=== PATIENT | male | born 1985 | race American Indian/Alaskan Native ===

== ENCOUNTER 2017-07-10 17:46 | Emergency (ER) | payer MEDICAID, OTHER ==
[2017-07-10] MEDS ORDERED: Acetaminophen/HYDROcodone 325-10 MG Tab PO ONE (17:47)
[2017-07-10 18:08] VITALS: BP 148/101
[2017-07-10] MEDS ORDERED: Acetaminophen/HYDROcodone 325-10 MG Tab ONE (18:50)
--- NOTE | 2017-07-10 18:55 | EDM.PDOC ---
ED HPI GENERAL MEDICAL PROBLEM - General Chief Complaint: Back Pain or Injury Stated Complaint: ABD/SIDE PAINS, [id number] Time Seen by Provider: 07/10/17 18:50 Source of Information: Reports: Patient History Limitations: Reports: No Limitations - History of Present Illness INITIAL COMMENTS - FREE TEXT/NARRATIVE: fell onto left side last night Left Posterior Chest Pain Score (Numeric/FACES): 10 - Related Data Allergies Allergy/AdvReac Type Severity Reaction Status Date / Time Penicillins Allergy Edema Verified 07/10/14 06:48 Home Meds: Home Meds Ibuprofen [Advil] 800 mg PO ASDIRECTED PRN 12/03/13 [History] Omeprazole 40 mg PO DAILY PRN 12/03/13 [History] Albuterol [Proventil HFA] 07/10/17 [History] Past Medical History Respiratory History: Reports: Asthma Gastrointestinal History: Reports: GERD - Past Surgical History HEENT Surgical History: Reports: Adenoidectomy, Tonsillectomy Social & Family History - Tobacco Use Smoking Status *Q: Current Every Day Smoker Years of Tobacco use: 7 Packs/Tins Daily: 0.5 - Caffeine Use Caffeine Use: Reports: Coffee, Tea - Alcohol Use Days Per Week of Alcohol Use: 0 - Recreational Drug Use Recreational Drug Use: No - Living Situation & Occupation Living situation: Reports: , with Family Occupation: Employed ED ROS GENERAL - Review of Systems Review Of Systems: ROS reveals no pertinent complaints other than HPI. ED EXAM, UPPER BACK/NECK PAIN - Physical Exam Exam: See Below Exam Limited By: No Limitations General Appearance: Alert, WD/WN, Mild Distress, Other (rib pain) Ears Exam: Hearing Grossly Normal Throat/Mouth Exam: Normal Voice, No Airway Compromise Head Exam: Atraumatic Neck Exam: Non-Tender, Full Range of Motion Nexus Criteria: No: Posterior, Midline Cervical Tenderness, Evidence of Intoxication, Altered Level of Consciousness, Focal Neurological Deficit, Painful Distraction Injuries Cardiovascular/Respiratory: Regular Rate, Rhythm, No Respiratory Distress, Other (left rib tender @ lateral 10-11-12 region, minimal 1" size discolourarion without crepitus, satis A/M) GI/Abdominal: Soft, Non-Tender Neurologic: No Motor/Sensory Deficits, Alert, Normal Mood/Affect, Oriented x 3 Psychiatric: Tearful Skin Exam: Normal Color, Warm/Dry Lymphatic: No Adenopathy Course - Vital Signs Last Recorded V/S: Last Vital Signs Temp 36.8 C 07/10/17 18:07 Pulse 105 H 07/10/17 18:07 Resp 18 07/10/17 18:07 BP 148/101 H 07/10/17 18:07 Pulse Ox 98 07/10/17 18:07 - Orders/Labs/Meds Orders: Active Orders 24 hr Category Date Time Status Ribs 2V w Chest Lt [CR] Urgent Exams 07/10/17 18:18 Taken - Re-Assessments/Exams Free Text/Narrative Re-Assessment/Exam: 07/10/17 18:53 results discussed with pt. Departure - Departure Time of Disposition: 18:53 Disposition: Home, Self-Care 01 Condition: Good Clinical Impression: Ribs, multiple fractures Qualifiers: Encounter type: initial encounter Fracture type: closed Laterality: left Qualified Code(s): S22.42XA - Multiple fractures of ribs, left side, initial encounter for closed fracture - Discharge Information Instructions: Rib Fracture, [id number] Additional Instructions: 1) no bending lifting straining for 1 week 2) follow p with family doctor Wednesday 3) must return if develops chest pain with shortness of breath rx given; vicodon 5/325mg tid prn x12
== END 2017-07-10 19:04 | disposition home or self-care (01) ==
LOC: DL.ED 17:46
DX: S22.42XA Multiple fractures of ribs, left side, initial encounter for closed fracture (principal); F17.210 Nicotine dependence, cigarettes, uncomplicated; Z98.890 Other specified postprocedural states; J45.909 Unspecified asthma, uncomplicated; K21.9 Gastro-esophageal reflux disease without esophagitis; Z79.899 Other long term (current) drug therapy; Z88.0 Allergy status to penicillin; W19.XXXA Unspecified fall, initial encounter
CPT/HCPCS: 71101-LT; 99283; A9270-GY

== ENCOUNTER 2022-09-13 12:12 | Emergency (ER) | payer MEDICAID ==
[2022-09-13 12:28] VITALS: BP 143/95; PULSE 89
[2022-09-13] MEDS ORDERED: Albuterol/Ipratropium 3.0-0.5 MG/3 ML Neb Soln NEB ONE (13:01)
[2022-09-13] MEDS ORDERED: predniSONE 20 MG Tab PO ONE (13:02)
[2022-09-13] MEDS ORDERED: Albuterol 6.7 GM Inhaler INH ONE (13:13)
[2022-09-13 13:21] LABS: CORONAVIRUS COVID-19 NAA NEGATIVE (NEGATIVE); RESPIRATORY SYNCYTIAL VIR NAA POSITIVE (NEGATIVE)
== END 2022-09-13 13:44 | disposition home or self-care (01) ==
LOC: DL.ED 12:12
DX: J21.0 Acute bronchiolitis due to respiratory syncytial virus (principal); J20.9 Acute bronchitis, unspecified; J45.909 Unspecified asthma, uncomplicated; K21.9 Gastro-esophageal reflux disease without esophagitis; Z88.0 Allergy status to penicillin; Z79.899 Other long term (current) drug therapy; Z20.822 Contact with and (suspected) exposure to COVID-19
CPT/HCPCS: 0241U; 71046; 94640; 99284; A9270; J7512; J7620-GY

== ENCOUNTER 2023-03-22 22:34 | Emergency (ER) | payer SELFPAY ==
[2023-03-22] MEDS ORDERED: Famotidine 20 MG/2 ML SDV IVPUSH ONE (23:43)
[2023-03-22] MEDS ORDERED: diphenhydrAMINE 50 MG/ML SDV IVPUSH ONE (23:43)
[2023-03-22] MEDS ORDERED: predniSONE 20 MG Tab PO ONE (23:44)
[2023-03-23 00:37] VITALS: BP 134/66; PULSE 100
== END 2023-03-23 00:48 | disposition home or self-care (01) ==
LOC: DL.ED 22:34
DX: T63.481A Toxic effect of venom of other arthropod, accidental (unintentional), initial encounter (principal); K21.9 Gastro-esophageal reflux disease without esophagitis; J45.909 Unspecified asthma, uncomplicated; Z72.0 Tobacco use; Z88.0 Allergy status to penicillin; Z79.899 Other long term (current) drug therapy
CPT/HCPCS: 96374; 96375; 99281; J1200; J3490; J7512; 99282

== ENCOUNTER 2023-10-28 17:39 | Emergency (ER) | payer MEDICAID ==
[2023-10-28 17:51] VITALS: BP 174/104; PULSE 112
[2023-10-28 18:34] LABS: BASOPHILS PERCENT AUTO 0.7 % (0.0-1.0); EOSINOPHILS PERCENT AUTO 1.6 % (1.0-3.0); HEMATOCRIT 54.6 % (40.0-54.0); HEMOGLOBIN 18.1 g/dL (14.0-18.0); MEAN CORPUSCULAR HEMOGLOBIN 28.9 pg (27.0-34.0); MEAN CORPUSCULAR HGB CONC 33.2 g/dL (33.0-35.0); MEAN CORPUSCULAR VOLUME 87.1 fL (80-100); MONOCYTES PERCENT AUTO 9.1 % (2-8); NEUTROPHILS PERCENT AUTO 55.6 % (42.2-75.2); PLATELET COUNT,PLT 380 10^3/uL (150-450); RED BLOOD CELL COUNT 6.27 10^6/uL (4.6-6.2); WHITE BLOOD CELL COUNT,WBC 17.5 10^3/uL (5.0-10.0)
[2023-10-28] MEDS: Lactated Ringers 1,000 ML IV ONE (18:34)
[2023-10-28] MEDS: Ondansetron 4 MG/2 ML SDV IVPUSH ONE (18:34)
[2023-10-28 18:53] LABS: A/G RATIO 1.2; ALANINE AMINOTRANSFERASE,ALT 35 U/L (16-63); ALBUMIN 4.1 g/dL (3.4-5.0); ALKALINE PHOSPHATASE 96 U/L (46-116); ANION GAP 17.1 mEq/L (7-13); ASPARTATE AMNIOTRANSFERASE,AST < 5 U/L (15-37); BILIRUBIN TOTAL 0.2 mg/dL (0.2-1.0); BLOOD UREA NITROGEN,BUN 11 mg/dL (7-18); CALCIUM 9.4 mg/dL (8.5-10.1); CARBON DIOXIDE,CO2 27 mmol/L (21-32); CHLORIDE,CL 104 mmol/L (98-107); EST CRCL DRUG DOSING (CG) 91.05 mL/min; ESTIMATED GFR 88 mL/min (>=60); GLUCOSE RANDOM 123 mg/dL (70-99); LIPASE 29 U/L (16-77); POTASSIUM,K 4.1 mmol/L (3.5-5.1); PROTEIN TOTAL,TP 7.4 g/dL (6.4-8.2); SODIUM,NA 144 mmol/L (136-145)
[2023-10-28] MEDS: Ketorolac 30 MG/ML SDV IVPUSH ONE (18:57)
[2023-10-28] MEDS: Iopamidol 612 MG/ML 100 ML Bottle IVPUSH ONE (19:25)
[2023-10-28 19:47] LABS: CORONAVIRUS COVID-19 NAA NEGATIVE (NEGATIVE); INFLUENZA A NAA NEGATIVE (NEGATIVE); INFLUENZA B NAA NEGATIVE (NEGATIVE); RESPIRATORY SYNCYTIAL VIR NAA NEGATIVE (NEGATIVE)
[2023-10-28 19:59] LABS: C-REACTIVE PROTEIN < 0.50 ng/dL (<=0.50)
[2023-10-28 20:45] LABS: LACTIC ACID 1.4 mmol/L (0.4-2.0)
[2023-10-28] MEDS: Take Home: Ondansetron 4 MG Tab.DIS, 5 Tab Pack PO ONE (21:03)
== END 2023-10-28 21:10 | disposition home or self-care (01) ==
LOC: DL.ED 17:39
DX: R10.9 Unspecified abdominal pain (principal); R11.2 Nausea with vomiting, unspecified; J45.909 Unspecified asthma, uncomplicated; K21.9 Gastro-esophageal reflux disease without esophagitis; F17.210 Nicotine dependence, cigarettes, uncomplicated; Z90.49 Acquired absence of other specified parts of digestive tract; Z79.899 Other long term (current) drug therapy; Z88.0 Allergy status to penicillin; Z86.16 Personal history of COVID-19; Z20.822 Contact with and (suspected) exposure to COVID-19
CPT/HCPCS: 0241U; 36415; 71045; 74177; 80053; 83605; 83690; 84145; 85025; 86140; 87040; 96361; 96374; 96375; 99284; 99284-25; J1885; J2405; J7120; Q0162; Q9967

== ENCOUNTER 2024-07-22 12:49 | Emergency (ER) | payer SELFPAY ==
[2024-07-22 13:07] VITALS: BP 157/93; PULSE 103
[2024-07-22] MEDS: Take Home: Doxycycline 100 MG Cap, 4 Cap Pack PO ONE (13:28)
[2024-07-22] MEDS: Albuterol 6.7 GM Inhaler INH ONE (13:28)
== END 2024-07-22 13:30 | disposition home or self-care (01) ==
LOC: DL.ED 12:49
DX: J18.9 Pneumonia, unspecified organism (principal); J45.909 Unspecified asthma, uncomplicated; K21.9 Gastro-esophageal reflux disease without esophagitis; F17.210 Nicotine dependence, cigarettes, uncomplicated; Z86.16 Personal history of COVID-19; Z90.49 Acquired absence of other specified parts of digestive tract; Z88.0 Allergy status to penicillin; Z79.51 Long term (current) use of inhaled steroids; Z79.899 Other long term (current) drug therapy
CPT/HCPCS: 99284; A9270

== ENCOUNTER 2025-04-27 02:09 | Emergency (ER) | payer BC ==
[2025-04-27 02:20] VITALS: BP 157/97; PULSE 98
== END 2025-04-27 02:39 | disposition home or self-care (01) ==
LOC: DL.ED 02:09
DX: K04.7 Periapical abscess without sinus (principal); J45.909 Unspecified asthma, uncomplicated; K21.9 Gastro-esophageal reflux disease without esophagitis; F17.200 Nicotine dependence, unspecified, uncomplicated; Z86.16 Personal history of COVID-19; Z90.49 Acquired absence of other specified parts of digestive tract; Z88.0 Allergy status to penicillin; Z79.51 Long term (current) use of inhaled steroids; Z79.899 Other long term (current) drug therapy
CPT/HCPCS: 64400; 99282; 99282-25